=== PATIENT | male | born 1995 | race African-American/Black ===

== ENCOUNTER 2022-05-11 23:07 | Emergency (ER) | payer SELFPAY ==
[~2022-05-11] VITALS: Ht 167.6 cm; Wt 86.4 kg
[~2022-05-11 23:07] MED LIST: ALEVE 220MG220 MG PO; EXCEDRIN 250 MG1 TAB PO; MUCINEX 60600 MG/TAB PO; NO HOME MEDICATIONS; ZITHROMAX 250M250 MG PO
[2022-05-11 23:11] VITALS: TEMP 98
[2022-05-11] MEDS ORDERED: MEDROL 4MG DOSPA4 MG PO (23:58)
[2022-05-11] MEDS ORDERED: FLEXERIL 1010 MG/TAB PO (23:58)
[2022-05-12 00:25] VITALS: BP 132/78; PULSE 76
== END 2022-05-12 00:25 | disposition home or self-care (01) ==
LOC: COL.ER 23:07
DX: M25.511 Pain in right shoulder (principal); Z28.310 Unvaccinated for COVID-19
CPT/HCPCS: J7512